=== PATIENT | female | born 1990 | race Caucasian/White ===

== ENCOUNTER 2021-01-18 16:01 | Inpatient (IN) | payer BC, MEDICAID, SELFPAY ==
[2021-01-18 16:07] VITALS: BMI 33.4
[2021-01-18 16:54] VITALS: BP 131/95; PULSE 99; RESP 17; TEMP 37.6; O2SAT 99
[2021-01-18] MEDS: acetaminophen 325 mg Tablet 650 MG PO (17:27)
[2021-01-18] MEDS: nicotine 21 mg Patch 1 PATCH TRANSDERMA (17:32)
[2021-01-18] MEDS: hyDROXYzine 25 mg Capsule 50 MG PO (18:03)
--- NOTE | 2021-01-18 18:04 | PC.NURSE ---
PRN VISTARIL PATIENT REQUESTING PRN VISTARIL FOR ANXIETY. ADMINISTERED VISTARIL 50MG PO. WILL MONITOR FOR MEDICATION EFFECTIVENESS.
[2021-01-18] MEDS: venlafaxine ER (24HR) 75 mg Capsule PO (19:58)
[2021-01-18] MEDS: prazosin 1 mg Capsule PO (19:58)
[2021-01-18] MEDS: doxepin 10 mg Capsule PO (19:58)
[2021-01-18] MEDS: ARIPiprazole 30 mg Tablet 15 MG PO (19:58)
[2021-01-18 20:08] VITALS: BP 145/93; PULSE 80; RESP 18; TEMP 36.5; O2SAT 96
[2021-01-18] MEDS: OLANZapine 5 mg ODT PO (20:52)
--- NOTE | 2021-01-18 20:53 | PC.NURSE ---
pt requesting vistaril for anxiety. pt was given said med at around 1800, unable to give again until midnight. zyprexa zidis 5mg given at this time for increased anxiety.
--- NOTE | 2021-01-18 21:50 | PC.NURSE ---
pt complaining of continued anxiety, haldol 5mg po given.
[2021-01-18] MEDS: haloperidol 5 mg Tablet PO (21:52)
[2021-01-18] MEDS: nicotine 2 mg Gum BUCCAL (21:53)
--- NOTE | 2021-01-19 00:32 | PC.NURSE ---
pt has been resting quietly with both eyes closed
[2021-01-19] MEDS: nicotine 2 mg Gum BUCCAL ×3 (03:15→21:54)
[2021-01-19] MEDS: hyDROXYzine 25 mg Capsule 50 MG PO ×3 (03:15→20:53)
[2021-01-19 06:00] VITALS: BP 149/81; PULSE 83; RESP 20; TEMP 36.2; O2SAT 98
[2021-01-19] MEDS: OLANZapine 5 mg ODT PO (06:29)
--- NOTE | 2021-01-19 06:31 | PC.NURSE ---
Patient continues to be anxious and on the verge of agitation . requested [id number] PO. ; given
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
[2021-01-19] MEDS: nicotine 21 mg Patch 1 PATCH TRANSDERMA (09:38)
[2021-01-19] MEDS: acetaminophen 325 mg Tablet 650 MG PO ×3 (10:46→23:17)
--- NOTE | 2021-01-19 10:47 | PC.NURSE ---
PRN VISTARIL 50 MG GIVEN PO PER PT C/O STATED ANXIETY. NO OUTWARD S/S OF ANXIETY NOTED, PT PREVIOUSLY UP IN DAY ROOM ATTENDING GROUP. WILL CONT TO MONITOR.
[2021-01-19] MEDS: propranolol 20 mg Tablet PO ×2 (13:39→20:26)
--- NOTE | 2021-01-19 13:40 | PC.NURSE ---
Addendum entered by Hafsa Weir LPN 01/19/21 18:49: prn med effective no further c/o anxiety Original Note: PRN INDERAL 20 MG GIVEN PO PER PT C/O STATED ANXIETY. WILL CONT TO MONITOR
[2021-01-19 14:00] VITALS: BP 146/87; PULSE 84; RESP 18; TEMP 36.2; O2SAT 97
[2021-01-19] MEDS: ondansetron 4 MG Tablet PO (15:59)
--- NOTE | 2021-01-19 15:59 | PC.NURSE ---
Addendum entered by Hafsa Weir LPN 01/19/21 18:49: prn med effective no further c/o nausea Original Note: PRN ZOFRAN 4 MG GIVEN PO PER PT C/O NAUSEA. PT MED SEEKING, REQUESTING ANY AND ALL PRN MEDICATIONS SHE CAN HAVE. WILL CONT TO MONITOR
[2021-01-19] MEDS: ARIPiprazole 30 mg Tablet 15 MG PO (20:25)
[2021-01-19] MEDS: venlafaxine ER (24HR) 150 mg Capsule PO (20:26)
[2021-01-19] MEDS: doxepin 10 mg Capsule PO (20:26)
[2021-01-19] MEDS: prazosin 1 mg Capsule PO (20:26)
[2021-01-19] MEDS: quetiapine 100 mg Tablet PO (20:26)
--- NOTE | 2021-01-19 20:41 | PC.NURSE ---
PM Assessment Pt is tearful while talking about surrendering her child. She states, I need some visteril and medication to help me calm down, hopefully, I will not need Haldol tonight. Pt heart/lung sounds are wnl, she is talkative with other patients, affect changes while speaking to nurse, seeking more medication, she has asked 3 times in last 30 min for 3 separate meds, visteril, seroquel, and haldol. Pt is talking on the phone with family, giggling, and talking about getting more medication with them also, Pt is cooperative with staff.
--- NOTE | 2021-01-19 20:44 | PC.NURSE ---
Nicotine Patch removed.
[2021-01-19 22:00] VITALS: BP 142/96; PULSE 80; RESP 16; TEMP 36.4; O2SAT 96
[2021-01-20 04:28] VITALS: BP 127/86; PULSE 83; RESP 16; TEMP 36.9; O2SAT 97
[2021-01-20] MEDS: nicotine 2 mg Gum BUCCAL ×2 (04:36→06:54)
--- NOTE | 2021-01-20 04:42 | PC.NURSE ---
Sunday night between 1999 and 2099 the patient was complaining about anxiety. She requested and was given Inderal at 2025. She requested and was given Vistaril at 2049. Later reported some relief of symptoms.
[2021-01-20] MEDS: hyDROXYzine 25 mg Capsule 50 MG PO (05:42)
[2021-01-20] MEDS: acetaminophen 325 mg Tablet 650 MG PO ×3 (05:42→15:55)
[2021-01-20] MEDS: propranolol 20 mg Tablet PO (08:07)
[2021-01-20] MEDS: nicotine 21 mg Patch 1 PATCH TRANSDERMA (08:07)
--- NOTE | 2021-01-20 08:46 | PC.NURSE ---
PRN MED PT GIVEN 20MG INDERAL FOR B/P OF 136/, WILL CONTINUE TO MONITOR.
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
[2021-01-20] MEDS: loperamide 2 mg Capsule PO (09:42)
--- NOTE | 2021-01-20 09:46 | PC.NURSE ---
PRN MED PT GIVEN PT GIVEN 2 MG IMODIUM FOR DIARRHEA, WILL CONTINUE TO MONITOR.
[2021-01-20 10:19] VITALS: BP 127/86; PULSE 83; RESP 16; TEMP 36.9; O2SAT 97
== END 2021-01-20 16:10 | disposition home or self-care (01) | DRG 881 ==
PROVIDERS: Admitting Provider Psychiatry & Neurology Psychiatry; Visit Provider Psychiatry & Neurology Psychiatry
DX: F32.9 Major depressive disorder, single episode, unspecified (principal); R45.851 Suicidal ideations; E66.9 Obesity, unspecified; Z68.33 Body mass index [BMI] 33.0-33.9, adult; F43.10 Post-traumatic stress disorder, unspecified; F12.10 Cannabis abuse, uncomplicated; F11.90 Opioid use, unspecified, uncomplicated
CPT/HCPCS: Q0162